=== PATIENT | male | born 1965 | race African-American/Black ===

== ENCOUNTER 2021-04-22 20:35 | Inpatient (IN) | payer OTHER ==
[2021-04-22 21:04] VITALS: BMI 216.1
[2021-04-23] MEDS ORDERED: IBUPROFEN 400 MG TABLET (FP) PO ONE (02:22)
[2021-04-23] MEDS ORDERED: MAGNESIUM CITRATE 300 ML BOTTLE PO PRN ×2 (03:58→04:04)
[2021-04-23] MEDS ORDERED: MAG HYDROX/AL HYDROX/SIMETH 30 ML UNIT-DOSE CUP PO PRN ×2 (03:58→04:04)
[2021-04-23] MEDS ORDERED: MAGNESIUM HYDROX 2400MG/30ML ORAL SUSPENSION 30 ML CUP PO PRN ×2 (03:58→04:04)
[2021-04-23] MEDS ORDERED: BISMUTH SUBSALICYLATE 524 MG/30 ML PO PRN ×2 (03:58→04:04)
[2021-04-23] MEDS ORDERED: MENTHOL/PHENOL 1 EACH UD MM PRN ×2 (03:58→04:04)
[2021-04-23] MEDS ORDERED: ONDANSETRON *ODT* 4 MG TABLET SL PRN ×2 (03:58→04:04)
[2021-04-23] MEDS ORDERED: ACETAMINOPHEN 325 MG TABLET (FP) PO PRN ×4 (03:58→04:04)
[2021-04-23] MEDS ORDERED: diazePAM 5 MG TABLET PO PRN (04:04)
[2021-04-23] MEDS ORDERED: METHOCARBAMOL 500 MG TABLET PO PRN (04:04)
[2021-04-23] MEDS ORDERED: IBUPROFEN 400 MG TABLET (FP) PO PRN (04:04)
[2021-04-23] MEDS ORDERED: diazePAM 5 MG TABLET ONE (05:00)
[2021-04-23] MEDS: diazePAM 5 MG TABLET PO SCH ×4 (05:05→22:54)
[2021-04-23] MEDS ORDERED: PRENATAL VITAMINS W/ FOLIC ACID TABLET (FP) PO SCH (10:00)
[2021-04-23] MEDS: IBUPROFEN 400 MG TABLET (FP) PO PRN (11:54)
[2021-04-23] MEDS: PRENATAL VITAMINS W/ FOLIC ACID TABLET (FP) PO SCH (11:54)
[2021-04-23] MEDS ORDERED: THIAMINE HCL 100 MG TABLET (FP) PO SCH (22:00)
[2021-04-23] MEDS ORDERED: MELATONIN 5 MG TABLETS PO SCH (22:00)
[2021-04-23] MEDS: THIAMINE HCL 100 MG TABLET (FP) PO SCH (23:00)
[2021-04-23] MEDS: MELATONIN 5 MG TABLETS PO SCH (23:00)
[2021-04-24] MEDS: diazePAM 5 MG TABLET PO SCH ×3 (06:22→22:59)
[2021-04-24] MEDS: METHOCARBAMOL 500 MG TABLET PO PRN (10:52)
[2021-04-24] MEDS: IBUPROFEN 400 MG TABLET (FP) PO PRN (10:52)
[2021-04-24] MEDS: PRENATAL VITAMINS W/ FOLIC ACID TABLET (FP) PO SCH (10:52)
[2021-04-24 13:30] LABS: HEMATOCRIT 41.9 % (35.4-49); HEMOGLOBIN 13.6 GM/dL (11.7-16.9); MCHC 32.5 g/dl (32.0-35.9); MEAN CELL VOLUME 86.1 fl (80-96); MEAN PLT VOLUME 7.5 fl (7.5-11.1); PLATELET COUNT 254 10^3/uL (134-434); RBC 4.87 M/mm3 (4.00-5.60); RDW 14.5 % (11.9-15.9); WHITE BLOOD COUNT 5.2 K/mm3 (4.0-10.0)
[2021-04-24 13:33] LABS: ALBUMIN 3.3 g/dl (3.4-5.0); CALCIUM 8.4 mg/dL (8.5-10.1)
[2021-04-24 13:35] LABS: BLOOD UREA NITROGEN 10.6 mg/dL (7-18)
[2021-04-24 13:39] LABS: BILIRUBIN,TOTAL 0.5 mg/dL (0.2-1); CREATININE 1.2 mg/dL (0.55-1.3); TOT PROT 6.3 g/dl (6.4-8.2)
[2021-04-24] MEDS: MELATONIN 5 MG TABLETS PO SCH (22:59)
[2021-04-24] MEDS: THIAMINE HCL 100 MG TABLET (FP) PO SCH (22:59)
[2021-04-25] MEDS: diazePAM 5 MG TABLET PO SCH ×3 (05:15→18:30)
[2021-04-25] MEDS: PRENATAL VITAMINS W/ FOLIC ACID TABLET (FP) PO SCH (10:26)
[2021-04-25] MEDS: METHOCARBAMOL 500 MG TABLET PO PRN (10:27)
[2021-04-25] MEDS: IBUPROFEN 400 MG TABLET (FP) PO PRN (10:27)
[2021-04-25] MEDS: THIAMINE HCL 100 MG TABLET (FP) PO SCH (22:05)
[2021-04-25] MEDS: MELATONIN 5 MG TABLETS PO SCH (22:06)
[2021-04-26] MEDS ORDERED: diazePAM 5 MG TABLET PO ONE (06:00)
[2021-04-26 06:20] VITALS: BP 112/61; PULSE 72; TEMP 97.2
== END 2021-04-26 09:03 | disposition home or self-care (01) | DRG 774 ==
LOC: YASAS 20:35 → Y6N 04-23 02:17
PROVIDERS: ADMIT Allergy & Immunology; ATTEND Allergy & Immunology
PROC: HZ2ZZZZ Detoxification Services for Substance Abuse Treatment (ICD-10-PCS; principal; 2021-04-23)
DX: F10.230 Alcohol dependence with withdrawal, uncomplicated (principal); F14.20 Cocaine dependence, uncomplicated; F17.210 Nicotine dependence, cigarettes, uncomplicated; F19.24 Other psychoactive substance dependence with psychoactive substance-induced mood disorder; F41.9 Anxiety disorder, unspecified; F32.A Depression, unspecified; F43.10 Post-traumatic stress disorder, unspecified; F90.9 Attention-deficit hyperactivity disorder, unspecified type; E78.5 Hyperlipidemia, unspecified; R73.03 Prediabetes; Z86.59 Personal history of other mental and behavioral disorders; Z99.89 Dependence on other enabling machines and devices; Z56.0 Unemployment, unspecified; Z59.01 Sheltered homelessness
CPT/HCPCS: 36415; 80053; 82962; 85027; 86780; 93005; 93010; C9803; U0003; U0005

== ENCOUNTER 2021-09-08 15:53 | Inpatient (IN) | payer OTHER ==
[2021-09-08 17:48] VITALS: BMI 24.3
[2021-09-08] MEDS ORDERED: MAG HYDROX/AL HYDROX/SIMETH 30 ML UNIT-DOSE CUP PO PRN (21:45)
[2021-09-08] MEDS ORDERED: ACETAMINOPHEN 325 MG TABLET (FP) PO PRN ×2 (21:45)
[2021-09-08] MEDS ORDERED: chlordiazePOXIDE HCL 25 MG CAPSULE PO PRN (21:45)
[2021-09-08] MEDS ORDERED: DICYCLOMINE HCL 10 MG CAPSULE PO PRN (21:45)
[2021-09-08] MEDS ORDERED: NICOTINE POLACRILEX 2 MG GUM BUC PRN (21:45)
[2021-09-08] MEDS ORDERED: IBUPROFEN 400 MG TABLET (FP) PO PRN (21:45)
[2021-09-08] MEDS ORDERED: ONDANSETRON *ODT* 4 MG TABLET SL PRN (21:45)
[2021-09-08] MEDS ORDERED: P-EPHED 60MG/TRIPROLIDI 2.5MG TABLET PO PRN (21:45)
[2021-09-08] MEDS ORDERED: MAGNESIUM HYDROX 2400MG/30ML ORAL SUSPENSION 30 ML CUP PO PRN (21:45)
[2021-09-08] MEDS ORDERED: METHOCARBAMOL 500 MG TABLET PO PRN (21:45)
[2021-09-08] MEDS ORDERED: MAGNESIUM CITRATE 300 ML BOTTLE PO PRN (21:45)
[2021-09-08] MEDS ORDERED: BENZOCAINE/MENTHOL (CHLORASEPTIC ) LOZENGE MM PRN (21:45)
[2021-09-08] MEDS ORDERED: guaiFENesin 200 MG/10 ML 10 ML UNIT-DOSE CUPS PO PRN (21:45)
[2021-09-08] MEDS ORDERED: BISMUTH SUBSALICYLATE 524 MG/30 ML PO PRN (21:45)
[2021-09-08] MEDS ORDERED: LOPERAMIDE HCL 2 MG CAPSULE PO PRN (21:45)
[2021-09-08] MEDS ORDERED: chlordiazePOXIDE HCL 25 MG CAPSULE ONE (23:42)
[2021-09-08] MEDS: THIAMINE HCL 100 MG TABLET (FP) PO SCH (23:49)
[2021-09-08] MEDS: chlordiazePOXIDE HCL 25 MG CAPSULE PO SCH (23:49)
[2021-09-08] MEDS: MELATONIN 5 MG TABLETS PO SCH (23:49)
[2021-09-09] MEDS: chlordiazePOXIDE HCL 25 MG CAPSULE PO SCH ×4 (06:00→22:37)
[2021-09-09] MEDS ORDERED: chlordiazePOXIDE HCL 25 MG CAPSULE ONE (08:27)
[2021-09-09] MEDS: FLUoxetine HCL 10 MG TABLET PO SCH (12:14)
[2021-09-09] MEDS: NICOTINE 14 MG/24 HOURS TOPICAL PATCH TD SCH (12:14)
[2021-09-09] MEDS: PRENATAL VITAMINS W/ FOLIC ACID TABLET (FP) PO SCH (12:14)
[2021-09-09 13:22] LABS: BLOOD UREA NITROGEN 9.7 mg/dL (7-18)
[2021-09-09 13:24] LABS: CALCIUM 8.4 mg/dL (8.5-10.1)
[2021-09-09 13:26] LABS: CREATININE 1.1 mg/dL (0.55-1.3)
[2021-09-09 13:30] LABS: BILIRUBIN,TOTAL 0.2 mg/dL (0.2-1)
[2021-09-09 13:35] LABS: HEMATOCRIT 39.8 % (35.4-49); HEMOGLOBIN 12.9 GM/dL (11.7-16.9); MCH 27.6 pg (25.7-33.7); MCHC 32.4 g/dl (32.0-35.9); MEAN PLT VOLUME 7.4 fl (7.5-11.1); PLATELET COUNT 323 10^3/uL (134-434); RBC 4.69 M/mm3 (4.00-5.60); RDW 14.6 % (11.9-15.9)
[2021-09-09] MEDS: THIAMINE HCL 100 MG TABLET (FP) PO SCH (22:37)
[2021-09-09] MEDS: MELATONIN 5 MG TABLETS PO SCH (22:37)
[2021-09-09] MEDS: QUEtiapine FUMARATE 50 MG TABLET PO SCH (22:37)
[2021-09-10] MEDS ORDERED: chlordiazePOXIDE HCL 25 MG CAPSULE PO SCH (05:00)
[2021-09-10] MEDS: chlordiazePOXIDE HCL 10 MG CAPSULE PO SCH ×4 (06:13→23:50)
[2021-09-10] MEDS: PRENATAL VITAMINS W/ FOLIC ACID TABLET (FP) PO SCH (10:48)
[2021-09-10] MEDS: FLUoxetine HCL 10 MG TABLET PO SCH (10:49)
[2021-09-10] MEDS: NICOTINE 14 MG/24 HOURS TOPICAL PATCH TD SCH (10:51)
[2021-09-10] MEDS: QUEtiapine FUMARATE 50 MG TABLET PO SCH (22:19)
[2021-09-10] MEDS: MELATONIN 5 MG TABLETS PO SCH (22:19)
[2021-09-10] MEDS: THIAMINE HCL 100 MG TABLET (FP) PO SCH (22:19)
[2021-09-11] MEDS ORDERED: chlordiazePOXIDE HCL 10 MG CAPSULE PO PRN
[2021-09-11] MEDS: chlordiazePOXIDE HCL 10 MG CAPSULE PO SCH ×2 (06:57→17:51)
[2021-09-11] MEDS: NICOTINE 14 MG/24 HOURS TOPICAL PATCH TD SCH (10:10)
[2021-09-11] MEDS: FLUoxetine HCL 10 MG TABLET PO SCH (10:11)
[2021-09-11] MEDS: PRENATAL VITAMINS W/ FOLIC ACID TABLET (FP) PO SCH (10:11)
[2021-09-11] MEDS: MELATONIN 5 MG TABLETS PO SCH (22:10)
[2021-09-11] MEDS: THIAMINE HCL 100 MG TABLET (FP) PO SCH (22:10)
[2021-09-11] MEDS: QUEtiapine FUMARATE 50 MG TABLET PO SCH (22:10)
[2021-09-12] MEDS ORDERED: chlordiazePOXIDE HCL 10 MG CAPSULE PO ONE (05:00)
[2021-09-12] MEDS: FLUoxetine HCL 10 MG TABLET PO SCH (10:24)
[2021-09-12] MEDS: PRENATAL VITAMINS W/ FOLIC ACID TABLET (FP) PO SCH (10:25)
[2021-09-12] MEDS: NICOTINE 14 MG/24 HOURS TOPICAL PATCH TD SCH (10:25)
[2021-09-12 12:36] VITALS: BP 120/73; PULSE 79; TEMP 97.6
== END 2021-09-12 13:53 | disposition other institution (70) | DRG 774 ==
LOC: YASAS 15:53 → Y3N 09-09 11:14
PROVIDERS: ADMIT Allergy & Immunology; ATTEND Allergy & Immunology
PROC: HZ2ZZZZ Detoxification Services for Substance Abuse Treatment (ICD-10-PCS; principal; 2021-09-09)
DX: F10.230 Alcohol dependence with withdrawal, uncomplicated (principal); F14.20 Cocaine dependence, uncomplicated; F17.210 Nicotine dependence, cigarettes, uncomplicated; F32.A Depression, unspecified; E78.5 Hyperlipidemia, unspecified; I10 Essential (primary) hypertension; Z86.39 Personal history of other endocrine, nutritional and metabolic disease; Z86.59 Personal history of other mental and behavioral disorders; Z99.89 Dependence on other enabling machines and devices; Z56.0 Unemployment, unspecified; Z59.00 Homelessness unspecified; Z91.14 Patient's other noncompliance with medication regimen
CPT/HCPCS: 36415; 80053; 83036; 85027; 86780; C9803-CS; U0003; U0005

== ENCOUNTER 2021-09-12 13:52 | Inpatient (IN) | payer OTHER ==
[2021-09-12] MEDS ORDERED: LOPERAMIDE HCL 2 MG CAPSULE PO PRN (15:03)
[2021-09-12] MEDS ORDERED: MAGNESIUM HYDROX 2400MG/30ML ORAL SUSPENSION 30 ML CUP PO PRN (15:03)
[2021-09-12] MEDS ORDERED: BENZOCAINE/MENTHOL (CHLORASEPTIC ) LOZENGE MM PRN (15:03)
[2021-09-12] MEDS ORDERED: MAG HYDROX/AL HYDROX/SIMETH 30 ML UNIT-DOSE CUP PO PRN (15:03)
[2021-09-12] MEDS ORDERED: P-EPHED 60MG/TRIPROLIDI 2.5MG TABLET PO PRN (15:03)
[2021-09-12] MEDS ORDERED: MELATONIN 5 MG TABLETS PO PRN (15:03)
[2021-09-12] MEDS ORDERED: IBUPROFEN 400 MG TABLET (FP) PO PRN (15:03)
[2021-09-12] MEDS ORDERED: MAGNESIUM CITRATE 300 ML BOTTLE PO PRN (15:03)
[2021-09-12] MEDS ORDERED: guaiFENesin 200 MG/10 ML 10 ML UNIT-DOSE CUPS PO PRN (15:03)
[2021-09-12] MEDS: THIAMINE HCL 100 MG TABLET (FP) PO SCH (21:08)
[2021-09-12] MEDS ORDERED: QUEtiapine FUMARATE 50 MG TABLET PO ONE (22:00)
[2021-09-13] MEDS: FLUoxetine HCL 10 MG CAPSULE PO SCH (11:24)
[2021-09-13] MEDS: ATOMOXETINE HCL 25 MG CAPSULE PO SCH (11:25)
[2021-09-13] MEDS: PRENATAL VITAMINS W/ FOLIC ACID TABLET (FP) PO SCH (11:27)
[2021-09-13] MEDS: THIAMINE HCL 100 MG TABLET (FP) PO SCH (21:21)
[2021-09-13] MEDS: QUEtiapine FUMARATE 50 MG TABLET PO SCH (21:21)
[2021-09-14] MEDS: FLUoxetine HCL 10 MG CAPSULE PO SCH (09:51)
[2021-09-14] MEDS: PRENATAL VITAMINS W/ FOLIC ACID TABLET (FP) PO SCH (09:51)
[2021-09-14] MEDS: ATOMOXETINE HCL 25 MG CAPSULE PO SCH (09:52)
[2021-09-14] MEDS: THIAMINE HCL 100 MG TABLET (FP) PO SCH (21:12)
[2021-09-14] MEDS: QUEtiapine FUMARATE 50 MG TABLET PO SCH (21:12)
[2021-09-15] MEDS: PRENATAL VITAMINS W/ FOLIC ACID TABLET (FP) PO SCH (09:40)
[2021-09-15] MEDS: FLUoxetine HCL 10 MG CAPSULE PO SCH (09:40)
[2021-09-15] MEDS: ATOMOXETINE HCL 25 MG CAPSULE PO SCH (09:41)
[2021-09-15 14:08] LABS: SARS-CoV-2 NAA Not Detected (Not Detected)
[2021-09-15] MEDS: THIAMINE HCL 100 MG TABLET (FP) PO SCH (21:27)
[2021-09-15] MEDS: QUEtiapine FUMARATE 50 MG TABLET PO SCH (21:27)
[2021-09-16] MEDS: PRENATAL VITAMINS W/ FOLIC ACID TABLET (FP) PO SCH (10:16)
[2021-09-16] MEDS: FLUoxetine HCL 10 MG CAPSULE PO SCH (10:16)
[2021-09-16] MEDS: ATOMOXETINE HCL 25 MG CAPSULE PO SCH (10:17)
[2021-09-16] MEDS: QUEtiapine FUMARATE 50 MG TABLET PO SCH (21:11)
[2021-09-16] MEDS: THIAMINE HCL 100 MG TABLET (FP) PO SCH (21:11)
[2021-09-17] MEDS: FLUoxetine HCL 10 MG CAPSULE PO SCH (10:20)
[2021-09-17] MEDS: ATOMOXETINE HCL 25 MG CAPSULE PO SCH (10:20)
[2021-09-17] MEDS: PRENATAL VITAMINS W/ FOLIC ACID TABLET (FP) PO SCH (10:20)
[2021-09-17] MEDS: THIAMINE HCL 100 MG TABLET (FP) PO SCH (21:31)
[2021-09-17] MEDS: QUEtiapine FUMARATE 50 MG TABLET PO SCH (21:31)
[2021-09-18] MEDS: FLUoxetine HCL 10 MG CAPSULE PO SCH (10:05)
[2021-09-18] MEDS: ATOMOXETINE HCL 25 MG CAPSULE PO SCH (10:05)
[2021-09-18] MEDS: PRENATAL VITAMINS W/ FOLIC ACID TABLET (FP) PO SCH (10:06)
[2021-09-18] MEDS: THIAMINE HCL 100 MG TABLET (FP) PO SCH (21:44)
[2021-09-18] MEDS: QUEtiapine FUMARATE 50 MG TABLET PO SCH (21:44)
[2021-09-19] MEDS: PRENATAL VITAMINS W/ FOLIC ACID TABLET (FP) PO SCH (10:53)
[2021-09-19] MEDS: FLUoxetine HCL 10 MG CAPSULE PO SCH (10:53)
[2021-09-19] MEDS: ATOMOXETINE HCL 25 MG CAPSULE PO SCH (10:53)
[2021-09-19] MEDS: ACETAMINOPHEN 325 MG TABLET (FP) PO PRN (10:53)
[2021-09-19] MEDS: THIAMINE HCL 100 MG TABLET (FP) PO SCH (21:16)
[2021-09-19] MEDS: QUEtiapine FUMARATE 50 MG TABLET PO SCH (21:16)
[2021-09-20] MEDS: PRENATAL VITAMINS W/ FOLIC ACID TABLET (FP) PO SCH (09:54)
[2021-09-20] MEDS: ATOMOXETINE HCL 25 MG CAPSULE PO SCH (09:54)
[2021-09-20] MEDS: FLUoxetine HCL 10 MG CAPSULE PO SCH (09:54)
[2021-09-20] MEDS: QUEtiapine FUMARATE 50 MG TABLET PO SCH (21:32)
[2021-09-20] MEDS: THIAMINE HCL 100 MG TABLET (FP) PO SCH (21:32)
[2021-09-21] MEDS: ATOMOXETINE HCL 25 MG CAPSULE PO SCH (09:43)
[2021-09-21] MEDS: FLUoxetine HCL 10 MG CAPSULE PO SCH (09:43)
[2021-09-21] MEDS: PRENATAL VITAMINS W/ FOLIC ACID TABLET (FP) PO SCH (09:43)
[2021-09-21] MEDS: THIAMINE HCL 100 MG TABLET (FP) PO SCH (21:15)
[2021-09-21] MEDS: QUEtiapine FUMARATE 50 MG TABLET PO SCH (21:15)
[2021-09-22] MEDS: FLUoxetine HCL 10 MG CAPSULE PO SCH (09:48)
[2021-09-22] MEDS: PRENATAL VITAMINS W/ FOLIC ACID TABLET (FP) PO SCH (09:48)
[2021-09-22] MEDS: ATOMOXETINE HCL 25 MG CAPSULE PO SCH (09:48)
[2021-09-22] MEDS: QUEtiapine FUMARATE 50 MG TABLET PO SCH (21:19)
[2021-09-22] MEDS: THIAMINE HCL 100 MG TABLET (FP) PO SCH (21:19)
[2021-09-23] MEDS: PRENATAL VITAMINS W/ FOLIC ACID TABLET (FP) PO SCH (10:01)
[2021-09-23] MEDS: FLUoxetine HCL 10 MG CAPSULE PO SCH (10:01)
[2021-09-23] MEDS: ATOMOXETINE HCL 25 MG CAPSULE PO SCH (10:02)
[2021-09-23] MEDS: QUEtiapine FUMARATE 50 MG TABLET PO SCH (21:32)
[2021-09-23] MEDS: THIAMINE HCL 100 MG TABLET (FP) PO SCH (21:32)
[2021-09-24] MEDS: ATOMOXETINE HCL 25 MG CAPSULE PO SCH (10:37)
[2021-09-24] MEDS: FLUoxetine HCL 10 MG CAPSULE PO SCH (10:37)
[2021-09-24] MEDS: PRENATAL VITAMINS W/ FOLIC ACID TABLET (FP) PO SCH (10:38)
[2021-09-24] MEDS: THIAMINE HCL 100 MG TABLET (FP) PO SCH (21:08)
[2021-09-24] MEDS: QUEtiapine FUMARATE 50 MG TABLET PO SCH (21:08)
[2021-09-25] MEDS: ATOMOXETINE HCL 25 MG CAPSULE PO SCH (09:54)
[2021-09-25] MEDS: PRENATAL VITAMINS W/ FOLIC ACID TABLET (FP) PO SCH (09:54)
[2021-09-25] MEDS: FLUoxetine HCL 10 MG CAPSULE PO SCH (09:54)
[2021-09-25] MEDS: QUEtiapine FUMARATE 50 MG TABLET PO SCH (21:28)
[2021-09-25] MEDS: THIAMINE HCL 100 MG TABLET (FP) PO SCH (21:28)
[2021-09-26] MEDS: PRENATAL VITAMINS W/ FOLIC ACID TABLET (FP) PO SCH (10:15)
[2021-09-26] MEDS: ATOMOXETINE HCL 25 MG CAPSULE PO SCH (10:15)
[2021-09-26] MEDS: FLUoxetine HCL 10 MG CAPSULE PO SCH (10:15)
[2021-09-26] MEDS: ACETAMINOPHEN 325 MG TABLET (FP) PO PRN (13:33)
[2021-09-26] MEDS: QUEtiapine FUMARATE 50 MG TABLET PO SCH (21:03)
[2021-09-26] MEDS: THIAMINE HCL 100 MG TABLET (FP) PO SCH (21:03)
[2021-09-27] MEDS: PRENATAL VITAMINS W/ FOLIC ACID TABLET (FP) PO SCH (10:10)
[2021-09-27] MEDS: ATOMOXETINE HCL 25 MG CAPSULE PO SCH (10:10)
[2021-09-27] MEDS: FLUoxetine HCL 10 MG CAPSULE PO SCH (10:10)
[2021-09-27] MEDS: QUEtiapine FUMARATE 50 MG TABLET PO SCH (21:24)
[2021-09-27] MEDS: THIAMINE HCL 100 MG TABLET (FP) PO SCH (21:24)
[2021-09-28] MEDS: FLUoxetine HCL 10 MG CAPSULE PO SCH (10:24)
[2021-09-28] MEDS: PRENATAL VITAMINS W/ FOLIC ACID TABLET (FP) PO SCH (10:24)
[2021-09-28] MEDS: ATOMOXETINE HCL 25 MG CAPSULE PO SCH (10:24)
[2021-09-28] MEDS: THIAMINE HCL 100 MG TABLET (FP) PO SCH (21:09)
[2021-09-28] MEDS: QUEtiapine FUMARATE 50 MG TABLET PO SCH (21:09)
[2021-09-29] MEDS: PRENATAL VITAMINS W/ FOLIC ACID TABLET (FP) PO SCH (09:42)
[2021-09-29] MEDS: FLUoxetine HCL 10 MG CAPSULE PO SCH (09:42)
[2021-09-29] MEDS: ATOMOXETINE HCL 25 MG CAPSULE PO SCH (09:42)
[2021-09-29] MEDS: ACETAMINOPHEN 325 MG TABLET (FP) PO PRN (12:50)
[2021-09-29] MEDS: QUEtiapine FUMARATE 50 MG TABLET PO SCH (21:21)
[2021-09-29] MEDS: THIAMINE HCL 100 MG TABLET (FP) PO SCH (21:21)
[2021-09-30] MEDS: PRENATAL VITAMINS W/ FOLIC ACID TABLET (FP) PO SCH (09:52)
[2021-09-30] MEDS: FLUoxetine HCL 10 MG CAPSULE PO SCH (09:52)
[2021-09-30] MEDS: ATOMOXETINE HCL 25 MG CAPSULE PO SCH (09:52)
[2021-09-30] MEDS: QUEtiapine FUMARATE 50 MG TABLET PO SCH (21:06)
[2021-09-30] MEDS: THIAMINE HCL 100 MG TABLET (FP) PO SCH (21:06)
[2021-10-01] MEDS: PRENATAL VITAMINS W/ FOLIC ACID TABLET (FP) PO SCH (10:05)
[2021-10-01] MEDS: ATOMOXETINE HCL 25 MG CAPSULE PO SCH (10:05)
[2021-10-01] MEDS: FLUoxetine HCL 10 MG CAPSULE PO SCH (10:05)
[2021-10-01] MEDS: THIAMINE HCL 100 MG TABLET (FP) PO SCH (21:22)
[2021-10-01] MEDS: QUEtiapine FUMARATE 50 MG TABLET PO SCH (21:22)
[2021-10-02] MEDS: PRENATAL VITAMINS W/ FOLIC ACID TABLET (FP) PO SCH (09:37)
[2021-10-02] MEDS: FLUoxetine HCL 10 MG CAPSULE PO SCH (09:37)
[2021-10-02] MEDS: ATOMOXETINE HCL 25 MG CAPSULE PO SCH (09:38)
[2021-10-02] MEDS: QUEtiapine FUMARATE 50 MG TABLET PO SCH (21:05)
[2021-10-02] MEDS: THIAMINE HCL 100 MG TABLET (FP) PO SCH (21:06)
[2021-10-03 06:57] VITALS: BP 121/76; PULSE 74; TEMP 96.7
[2021-10-03] MEDS: FLUoxetine HCL 10 MG CAPSULE PO SCH (09:43)
[2021-10-03] MEDS: PRENATAL VITAMINS W/ FOLIC ACID TABLET (FP) PO SCH (09:43)
[2021-10-03] MEDS: ATOMOXETINE HCL 25 MG CAPSULE PO SCH (09:44)
== END 2021-10-03 09:45 | disposition home or self-care (01) | DRG 772 ==
LOC: YASAS 13:52 → Y3W 13:53
PROVIDERS: ADMIT Allergy & Immunology; ATTEND Allergy & Immunology
PROC: HZ42ZZZ Group Counseling for Substance Abuse Treatment, Cognitive-Behavioral (ICD-10-PCS; principal; 2021-09-12)
DX: F10.20 Alcohol dependence, uncomplicated (principal); F14.20 Cocaine dependence, uncomplicated; F17.210 Nicotine dependence, cigarettes, uncomplicated; F32.A Depression, unspecified; I10 Essential (primary) hypertension; R73.03 Prediabetes; Z86.59 Personal history of other mental and behavioral disorders; Z91.14 Patient's other noncompliance with medication regimen; Z56.0 Unemployment, unspecified; Z59.00 Homelessness unspecified
CPT/HCPCS: 82962; C9803-CS; U0003; U0005

== ENCOUNTER 2022-01-25 16:22 | Inpatient (IN) | payer OTHER ==
[2022-01-25 18:26] VITALS: BMI 25.1
[2022-01-25] MEDS ORDERED: METHOCARBAMOL 500 MG TABLET PO PRN (20:14)
[2022-01-25] MEDS ORDERED: NICOTINE POLACRILEX 2 MG GUM BUC PRN (20:14)
[2022-01-25] MEDS ORDERED: LOPERAMIDE HCL 2 MG CAPSULE PO PRN (20:14)
[2022-01-25] MEDS ORDERED: ACETAMINOPHEN 325 MG TABLET (FP) PO PRN ×2 (20:14)
[2022-01-25] MEDS ORDERED: P-EPHED 60MG/TRIPROLIDI 2.5MG TABLET PO PRN (20:14)
[2022-01-25] MEDS ORDERED: MAGNESIUM HYDROX 2400MG/30ML ORAL SUSPENSION 30 ML CUP PO PRN (20:14)
[2022-01-25] MEDS ORDERED: MAG HYDROX/AL HYDROX/SIMETH 30 ML UNIT-DOSE CUP PO PRN (20:14)
[2022-01-25] MEDS ORDERED: BENZOCAINE/MENTHOL (CHLORASEPTIC ) LOZENGE MM PRN (20:14)
[2022-01-25] MEDS ORDERED: IBUPROFEN 400 MG TABLET (FP) PO PRN (20:14)
[2022-01-25] MEDS ORDERED: BISMUTH SUBSALICYLATE 524 MG/30 ML PO PRN (20:14)
[2022-01-25] MEDS ORDERED: DICYCLOMINE HCL 10 MG CAPSULE PO PRN (20:14)
[2022-01-25] MEDS ORDERED: MAGNESIUM CITRATE 300 ML BOTTLE PO PRN (20:14)
[2022-01-25] MEDS ORDERED: ONDANSETRON *ODT* 4 MG TABLET SL PRN (20:14)
[2022-01-25] MEDS ORDERED: IBUPROFEN 600 MG TABLET (FP) PO PRN (20:14)
[2022-01-25] MEDS ORDERED: hydrOXYzine PAMOATE 25 MG CAPSULE (FP) PO PRN (20:14)
[2022-01-25] MEDS ORDERED: guaiFENesin 200 MG/10 ML 10 ML UNIT-DOSE CUPS PO PRN (20:14)
[2022-01-26] MEDS: MELATONIN 5 MG TABLETS PO SCH ×2 (03:09→23:05)
[2022-01-26] MEDS: THIAMINE HCL 100 MG TABLET (FP) PO SCH ×2 (03:09→23:04)
[2022-01-26 10:06] LABS: HEMATOCRIT 38.2 % (35.4-49); HEMOGLOBIN 12.9 GM/dL (11.7-16.9); MCH 28.7 pg (25.7-33.7); MCHC 33.7 g/dl (32.0-35.9); MEAN CELL VOLUME 85.2 fl (80-96); MEAN PLT VOLUME 7.3 fl (7.5-11.1); PLATELET COUNT 296 10^3/uL (134-434); RBC 4.49 M/mm3 (4.00-5.60); RDW 13.8 % (11.9-15.9)
[2022-01-26] MEDS: PRENATAL VITAMINS W/ FOLIC ACID TABLET (FP) PO SCH (10:37)
[2022-01-26] MEDS: NICOTINE 14 MG/24 HOURS TOPICAL PATCH TD SCH (10:38)
[2022-01-26 12:01] LABS: HIV INTERPRETATION NEGATIVE (NEGATIVE)
[2022-01-26 12:14] LABS: ALBUMIN 3.2 g/dl (3.4-5.0); CALCIUM 8.6 mg/dL (8.5-10.1)
[2022-01-26 12:17] LABS: CREATININE 1.2 mg/dL (0.55-1.3)
[2022-01-26 12:19] LABS: BILIRUBIN,TOTAL 0.7 mg/dL (0.2-1); TOT PROT 5.9 g/dl (6.4-8.2)
[2022-01-26] MEDS ORDERED: LORazepam 1 MG TABLET PO PRN (14:51)
[2022-01-26] MEDS: ACYCLOVIR 200 MG CAPSULE PO SCH ×2 (15:41→23:04)
[2022-01-26] MEDS: LORazepam 2 MG TABLET PO SCH ×2 (17:55→23:05)
[2022-01-26] MEDS: QUEtiapine FUMARATE 50 MG TABLET PO SCH (23:04)
[2022-01-27] MEDS: LORazepam 2 MG TABLET PO SCH ×4 (06:15→22:40)
[2022-01-27] MEDS: ACYCLOVIR 200 MG CAPSULE PO SCH ×2 (10:42→22:41)
[2022-01-27] MEDS: NICOTINE 14 MG/24 HOURS TOPICAL PATCH TD SCH (10:42)
[2022-01-27] MEDS: PRENATAL VITAMINS W/ FOLIC ACID TABLET (FP) PO SCH (10:42)
[2022-01-27] MEDS: FLUoxetine HCL 10 MG TABLET PO SCH (11:18)
[2022-01-27] MEDS: ATOMOXETINE HCL 25 MG CAPSULE PO SCH (11:18)
[2022-01-27] MEDS: QUEtiapine FUMARATE 50 MG TABLET PO SCH (22:41)
[2022-01-27] MEDS: THIAMINE HCL 100 MG TABLET (FP) PO SCH (22:41)
[2022-01-27] MEDS: MELATONIN 5 MG TABLETS PO SCH (22:41)
[2022-01-28] MEDS: LORazepam 1 MG TABLET PO SCH ×4 (05:51→22:46)
[2022-01-28] MEDS: NICOTINE 14 MG/24 HOURS TOPICAL PATCH TD SCH (10:33)
[2022-01-28] MEDS: PRENATAL VITAMINS W/ FOLIC ACID TABLET (FP) PO SCH (10:33)
[2022-01-28] MEDS: FLUoxetine HCL 10 MG TABLET PO SCH (10:34)
[2022-01-28] MEDS: ATOMOXETINE HCL 25 MG CAPSULE PO SCH (10:34)
[2022-01-28] MEDS: ACYCLOVIR 200 MG CAPSULE PO SCH ×2 (10:34→22:46)
[2022-01-28] MEDS: QUEtiapine FUMARATE 50 MG TABLET PO SCH (22:46)
[2022-01-28] MEDS: THIAMINE HCL 100 MG TABLET (FP) PO SCH (22:46)
[2022-01-28] MEDS: MELATONIN 5 MG TABLETS PO SCH (22:46)
[2022-01-29] MEDS ORDERED: LORazepam 0.5 MG TABLET PO PRN
[2022-01-29] MEDS: LORazepam 0.5 MG TABLET PO SCH ×4 (05:36→22:44)
[2022-01-29] MEDS: PRENATAL VITAMINS W/ FOLIC ACID TABLET (FP) PO SCH (10:28)
[2022-01-29] MEDS: ACYCLOVIR 200 MG CAPSULE PO SCH ×2 (10:28→22:44)
[2022-01-29] MEDS: FLUoxetine HCL 10 MG TABLET PO SCH (10:29)
[2022-01-29] MEDS: ATOMOXETINE HCL 25 MG CAPSULE PO SCH (10:29)
[2022-01-29] MEDS: NICOTINE 14 MG/24 HOURS TOPICAL PATCH TD SCH (10:30)
[2022-01-29] MEDS: MELATONIN 5 MG TABLETS PO SCH (22:44)
[2022-01-29] MEDS: QUEtiapine FUMARATE 50 MG TABLET PO SCH (22:44)
[2022-01-29] MEDS: THIAMINE HCL 100 MG TABLET (FP) PO SCH (22:44)
[2022-01-30] MEDS ORDERED: LORazepam 0.5 MG TABLET PO ONE (05:00)
[2022-01-30] MEDS ORDERED: INSULIN SLIDING SCALE (NOVOLOG) 1 VIAL SQ ONE (06:47)
[2022-01-30] MEDS: PRENATAL VITAMINS W/ FOLIC ACID TABLET (FP) PO SCH (10:30)
[2022-01-30] MEDS: FLUoxetine HCL 10 MG TABLET PO SCH (10:31)
[2022-01-30] MEDS: NICOTINE 14 MG/24 HOURS TOPICAL PATCH TD SCH (10:31)
[2022-01-30] MEDS: ACYCLOVIR 200 MG CAPSULE PO SCH ×2 (10:32→22:38)
[2022-01-30] MEDS: ATOMOXETINE HCL 25 MG CAPSULE PO SCH (10:33)
[2022-01-30] MEDS: QUEtiapine FUMARATE 50 MG TABLET PO SCH (22:38)
[2022-01-30] MEDS: MELATONIN 5 MG TABLETS PO SCH (22:38)
[2022-01-30] MEDS: THIAMINE HCL 100 MG TABLET (FP) PO SCH (22:38)
[2022-01-31] MEDS: FLUoxetine HCL 10 MG TABLET PO SCH (11:10)
[2022-01-31] MEDS: NICOTINE 14 MG/24 HOURS TOPICAL PATCH TD SCH (11:10)
[2022-01-31] MEDS: PRENATAL VITAMINS W/ FOLIC ACID TABLET (FP) PO SCH (11:10)
[2022-01-31] MEDS: ATOMOXETINE HCL 25 MG CAPSULE PO SCH (11:11)
[2022-01-31] MEDS: ACYCLOVIR 200 MG CAPSULE PO SCH ×2 (11:11→21:37)
[2022-01-31] MEDS: THIAMINE HCL 100 MG TABLET (FP) PO SCH (21:37)
[2022-01-31] MEDS: QUEtiapine FUMARATE 50 MG TABLET PO SCH (21:37)
[2022-01-31] MEDS: MELATONIN 5 MG TABLETS PO SCH (21:37)
[2022-01-31 21:54] VITALS: RESP 18
[2022-02-01 09:56] VITALS: BP 116/62; PULSE 80; TEMP 97.6
[2022-02-01] MEDS: NICOTINE 14 MG/24 HOURS TOPICAL PATCH TD SCH (11:17)
[2022-02-01] MEDS: PRENATAL VITAMINS W/ FOLIC ACID TABLET (FP) PO SCH (11:18)
[2022-02-01] MEDS: FLUoxetine HCL 10 MG TABLET PO SCH (11:18)
[2022-02-01] MEDS: ATOMOXETINE HCL 25 MG CAPSULE PO SCH (11:18)
[2022-02-01] MEDS: ACYCLOVIR 200 MG CAPSULE PO SCH (11:18)
== END 2022-02-01 12:22 | disposition home or self-care (01) | DRG 774 ==
LOC: YASAS 16:22 → Y3N 01-26 02:27
PROVIDERS: ADMIT Surgery; ATTEND Surgery
PROC: HZ2ZZZZ Detoxification Services for Substance Abuse Treatment (ICD-10-PCS; principal; 2022-01-26)
DX: F10.230 Alcohol dependence with withdrawal, uncomplicated (principal); F14.20 Cocaine dependence, uncomplicated; F17.210 Nicotine dependence, cigarettes, uncomplicated; F19.24 Other psychoactive substance dependence with psychoactive substance-induced mood disorder; I10 Essential (primary) hypertension; E78.5 Hyperlipidemia, unspecified; U07.1 COVID-19; R79.89 Other specified abnormal findings of blood chemistry; R73.9 Hyperglycemia, unspecified; R73.03 Prediabetes; E46 Unspecified protein-calorie malnutrition; Z68.25 Body mass index [BMI] 25.0-25.9, adult; Z86.59 Personal history of other mental and behavioral disorders; Z91.14 Patient's other noncompliance with medication regimen; Z56.0 Unemployment, unspecified; Z59.00 Homelessness unspecified
CPT/HCPCS: 36415; 80053; 82962; 84132; 85027; 86780; 87389; 87811; C9803-CS; U0003; U0005

== ENCOUNTER 2022-02-23 15:20 | Inpatient (IN) | payer OTHER ==
[2022-02-23 18:20] VITALS: BMI 23.9
[2022-02-23] MEDS ORDERED: chlordiazePOXIDE HCL 25 MG CAPSULE PO PRN (18:58)
[2022-02-23] MEDS ORDERED: LOPERAMIDE HCL 2 MG CAPSULE PO PRN (18:58)
[2022-02-23] MEDS ORDERED: NICOTINE 10 MG CARTRIDGE (INHALER) IH PRN (18:58)
[2022-02-23] MEDS ORDERED: MAGNESIUM HYDROX 2400MG/30ML ORAL SUSPENSION 30 ML CUP PO PRN (18:58)
[2022-02-23] MEDS ORDERED: BISMUTH SUBSALICYLATE 524 MG/30 ML PO PRN (18:58)
[2022-02-23] MEDS ORDERED: NALOXONE HCL (KLOXXADO) 8 MG SPRAY NS PRN (18:58)
[2022-02-23] MEDS ORDERED: MAG HYDROX/AL HYDROX/SIMETH 30 ML UNIT-DOSE CUP PO PRN (18:58)
[2022-02-23] MEDS ORDERED: NICOTINE POLACRILEX 2 MG GUM BC PRN (18:58)
[2022-02-23] MEDS ORDERED: MAGNESIUM CITRATE 300 ML BOTTLE PO PRN (18:58)
[2022-02-23] MEDS ORDERED: ONDANSETRON *ODT* 4 MG TABLET SL PRN (18:58)
[2022-02-23] MEDS ORDERED: IBUPROFEN 400 MG TABLET (FP) PO PRN (18:58)
[2022-02-23] MEDS ORDERED: BENZOCAINE/MENTHOL (CHLORASEPTIC ) LOZENGE MM PRN (18:58)
[2022-02-23] MEDS ORDERED: IBUPROFEN 600 MG TABLET (FP) PO PRN (18:58)
[2022-02-23] MEDS ORDERED: DICYCLOMINE HCL 10 MG CAPSULE PO PRN (18:58)
[2022-02-23] MEDS ORDERED: ACETAMINOPHEN 325 MG TABLET (FP) PO PRN ×2 (18:58)
[2022-02-23] MEDS ORDERED: METHOCARBAMOL 500 MG TABLET PO PRN (18:58)
[2022-02-23] MEDS: PRENATAL VITAMINS W/ FOLIC ACID TABLET (FP) PO SCH (22:34)
[2022-02-23] MEDS: MELATONIN 5 MG TABLETS PO SCH (22:34)
[2022-02-23] MEDS: NICOTINE 7 MG/24 HOURS TOPICAL PATCH TD SCH (22:34)
[2022-02-23] MEDS: THIAMINE HCL 100 MG TABLET (FP) PO SCH (22:34)
[2022-02-23] MEDS: hydrOXYzine PAMOATE 25 MG CAPSULE (FP) PO SCH (22:34)
[2022-02-23] MEDS: chlordiazePOXIDE HCL 25 MG CAPSULE PO SCH (22:35)
[2022-02-24] MEDS: hydrOXYzine PAMOATE 25 MG CAPSULE (FP) PO SCH ×5 (06:03→23:03)
[2022-02-24] MEDS: chlordiazePOXIDE HCL 25 MG CAPSULE PO SCH ×4 (06:05→23:03)
[2022-02-24] MEDS: FLUoxetine HCL 10 MG TABLET PO SCH (11:36)
[2022-02-24] MEDS: NICOTINE 7 MG/24 HOURS TOPICAL PATCH TD SCH (11:36)
[2022-02-24] MEDS: PRENATAL VITAMINS W/ FOLIC ACID TABLET (FP) PO SCH (11:36)
[2022-02-24] MEDS: ATOMOXETINE HCL 25 MG CAPSULE PO SCH (11:36)
[2022-02-24] MEDS: QUEtiapine FUMARATE 50 MG TABLET PO SCH (23:03)
[2022-02-24] MEDS: THIAMINE HCL 100 MG TABLET (FP) PO SCH (23:03)
[2022-02-25] MEDS: chlordiazePOXIDE HCL 25 MG CAPSULE PO SCH ×4 (06:31→22:28)
[2022-02-25] MEDS: hydrOXYzine PAMOATE 25 MG CAPSULE (FP) PO SCH ×5 (06:32→22:29)
[2022-02-25] MEDS: FLUoxetine HCL 10 MG TABLET PO SCH (10:43)
[2022-02-25] MEDS: PRENATAL VITAMINS W/ FOLIC ACID TABLET (FP) PO SCH (10:43)
[2022-02-25] MEDS: ATOMOXETINE HCL 25 MG CAPSULE PO SCH (10:44)
[2022-02-25] MEDS: NICOTINE 7 MG/24 HOURS TOPICAL PATCH TD SCH (10:46)
[2022-02-25 21:09] VITALS: RESP 18
[2022-02-25] MEDS: MELATONIN 5 MG TABLETS PO SCH (22:29)
[2022-02-25] MEDS: THIAMINE HCL 100 MG TABLET (FP) PO SCH (22:29)
[2022-02-25] MEDS: QUEtiapine FUMARATE 50 MG TABLET PO SCH (22:29)
[2022-02-26] MEDS ORDERED: chlordiazePOXIDE HCL 10 MG CAPSULE PO PRN
[2022-02-26] MEDS: chlordiazePOXIDE HCL 10 MG CAPSULE PO SCH ×4 (05:35→23:10)
[2022-02-26] MEDS: hydrOXYzine PAMOATE 25 MG CAPSULE (FP) PO SCH ×5 (05:35→23:10)
[2022-02-26] MEDS: PRENATAL VITAMINS W/ FOLIC ACID TABLET (FP) PO SCH (10:25)
[2022-02-26] MEDS: FLUoxetine HCL 10 MG TABLET PO SCH (10:26)
[2022-02-26] MEDS: ATOMOXETINE HCL 25 MG CAPSULE PO SCH (10:26)
[2022-02-26 10:37] LABS: HEMATOCRIT 37.4 % (35.4-49); HEMOGLOBIN 12.3 GM/dL (11.7-16.9); MCHC 32.8 g/dl (32.0-35.9); MEAN CELL VOLUME 85.4 fl (80-96); MEAN PLT VOLUME 7.4 fl (7.5-11.1); PLATELET COUNT 298 10^3/uL (134-434); RBC 4.38 M/mm3 (4.00-5.60); RDW 14.8 % (11.9-15.9); WHITE BLOOD COUNT 3.5 K/mm3 (4.0-10.0)
[2022-02-26 10:39] LABS: BLOOD UREA NITROGEN 12.8 mg/dL (7-18)
[2022-02-26 10:40] LABS: ALBUMIN 2.8 g/dl (3.4-5.0); CALCIUM 8.5 mg/dL (8.5-10.1)
[2022-02-26 10:42] LABS: CREATININE 0.9 mg/dL (0.55-1.3)
[2022-02-26 10:43] LABS: BILIRUBIN,TOTAL 0.2 mg/dL (0.2-1)
[2022-02-26 10:44] LABS: TOT PROT 5.4 g/dl (6.4-8.2)
[2022-02-26] MEDS: NICOTINE 7 MG/24 HOURS TOPICAL PATCH TD SCH (11:28)
[2022-02-26] MEDS: THIAMINE HCL 100 MG TABLET (FP) PO SCH (23:10)
[2022-02-26] MEDS: QUEtiapine FUMARATE 50 MG TABLET PO SCH (23:10)
[2022-02-27] MEDS: hydrOXYzine PAMOATE 25 MG CAPSULE (FP) PO SCH ×5 (05:31→22:07)
[2022-02-27] MEDS: chlordiazePOXIDE HCL 10 MG CAPSULE PO SCH ×2 (05:32→18:25)
[2022-02-27] MEDS: PRENATAL VITAMINS W/ FOLIC ACID TABLET (FP) PO SCH (10:40)
[2022-02-27] MEDS: NICOTINE 7 MG/24 HOURS TOPICAL PATCH TD SCH (10:40)
[2022-02-27] MEDS: FLUoxetine HCL 10 MG TABLET PO SCH (10:40)
[2022-02-27] MEDS: ATOMOXETINE HCL 25 MG CAPSULE PO SCH (10:40)
[2022-02-27] MEDS: QUEtiapine FUMARATE 50 MG TABLET PO SCH (22:07)
[2022-02-27] MEDS: THIAMINE HCL 100 MG TABLET (FP) PO SCH (22:07)
[2022-02-28] MEDS ORDERED: chlordiazePOXIDE HCL 10 MG CAPSULE PO ONE (05:00)
[2022-02-28] MEDS: hydrOXYzine PAMOATE 25 MG CAPSULE (FP) PO SCH ×3 (06:16→13:20)
[2022-02-28 08:45] VITALS: PULSE 79
[2022-02-28] MEDS: NICOTINE 7 MG/24 HOURS TOPICAL PATCH TD SCH (09:37)
[2022-02-28] MEDS: PRENATAL VITAMINS W/ FOLIC ACID TABLET (FP) PO SCH (09:37)
[2022-02-28] MEDS: FLUoxetine HCL 10 MG TABLET PO SCH (09:37)
[2022-02-28] MEDS: ATOMOXETINE HCL 25 MG CAPSULE PO SCH (09:37)
[2022-02-28 12:48] VITALS: BP 131/84; TEMP 97.7
== END 2022-02-28 15:31 | disposition home or self-care (01) | DRG 774 ==
LOC: YASAS 15:20 → Y3N 19:00
PROVIDERS: ADMIT Allergy & Immunology; ATTEND Surgery
PROC: HZ2ZZZZ Detoxification Services for Substance Abuse Treatment (ICD-10-PCS; principal; 2022-02-23)
DX: F10.230 Alcohol dependence with withdrawal, uncomplicated (principal); F14.20 Cocaine dependence, uncomplicated; F12.20 Cannabis dependence, uncomplicated; F17.210 Nicotine dependence, cigarettes, uncomplicated; F19.24 Other psychoactive substance dependence with psychoactive substance-induced mood disorder; I10 Essential (primary) hypertension; R73.03 Prediabetes; Z86.59 Personal history of other mental and behavioral disorders; Z56.0 Unemployment, unspecified; Z59.00 Homelessness unspecified
CPT/HCPCS: 36415; 80053; 82962; 85027; 86780; C9803-CS; U0003; U0005

== ENCOUNTER 2022-03-19 12:16 | Inpatient (IN) | payer OTHER ==
[2022-03-19 12:50] VITALS: BMI 23.3
[2022-03-19] MEDS ORDERED: MAGNESIUM HYDROX 2400MG/30ML ORAL SUSPENSION 30 ML CUP PO PRN (18:58)
[2022-03-19] MEDS ORDERED: ACETAMINOPHEN 325 MG TABLET (FP) PO PRN (18:58)
[2022-03-19] MEDS ORDERED: P-EPHED 60MG/TRIPROLIDI 2.5MG TABLET PO PRN (18:58)
[2022-03-19] MEDS ORDERED: hydrOXYzine PAMOATE 25 MG CAPSULE (FP) PO PRN (18:58)
[2022-03-19] MEDS ORDERED: NICOTINE 10 MG CARTRIDGE (INHALER) IH PRN (18:58)
[2022-03-19] MEDS ORDERED: LOPERAMIDE HCL 2 MG CAPSULE PO PRN (18:58)
[2022-03-19] MEDS ORDERED: MAG HYDROX/AL HYDROX/SIMETH 30 ML UNIT-DOSE CUP PO PRN (18:58)
[2022-03-19] MEDS ORDERED: MAGNESIUM CITRATE 300 ML BOTTLE PO PRN (18:58)
[2022-03-19] MEDS ORDERED: guaiFENesin 200 MG/10 ML 10 ML UNIT-DOSE CUPS PO PRN (18:58)
[2022-03-19] MEDS ORDERED: IBUPROFEN 400 MG TABLET (FP) PO PRN (18:58)
[2022-03-19] MEDS: MELATONIN 5 MG TABLETS PO SCH (23:40)
[2022-03-19] MEDS: THIAMINE HCL 100 MG TABLET (FP) PO SCH (23:40)
[2022-03-20] MEDS: NICOTINE 7 MG/24 HOURS TOPICAL PATCH TD SCH (10:36)
[2022-03-20] MEDS: PRENATAL VITAMINS W/ FOLIC ACID TABLET (FP) PO SCH (10:36)
[2022-03-20 15:27] LABS: PH,URINE 5.5 (5.0-8.0); URINE APPEARANCE CLEAR; URINE BILIRUBIN NEGATIVE (NEGATIVE); URINE COLOR YELLOW; URINE GLUCOSE (UA) NEGATIVE (NEGATIVE); URINE KETONE TRACE (NEGATIVE); URINE LEUK ESTERASE NEGATIVE (NEGATIVE); URINE NITRITE NEGATIVE (NEGATIVE); URINE PROTEIN NEGATIVE (NEGATIVE); URINE UROBILINOGEN 0.2 mg/dL (0.2-1.0)
[2022-03-20 15:28] LABS: HEMATOCRIT 38.3 % (35.4-49); HEMOGLOBIN 12.3 GM/dL (11.7-16.9); MCH 27.8 pg (25.7-33.7); MCHC 32.2 g/dl (32.0-35.9); MEAN CELL VOLUME 86.3 fl (80-96); PLATELET COUNT 316 10^3/uL (134-434); RBC 4.43 M/mm3 (4.00-5.60); RDW 14.5 % (11.9-15.9); WHITE BLOOD COUNT 3.7 K/mm3 (4.0-10.0)
[2022-03-20 17:49] LABS: ALBUMIN 2.9 g/dl (3.4-5.0); CALCIUM 8.4 mg/dL (8.5-10.1)
[2022-03-20 17:53] LABS: CREATININE 1.1 mg/dL (0.55-1.3)
[2022-03-20 17:54] LABS: BILIRUBIN,TOTAL 0.4 mg/dL (0.2-1); TOT PROT 5.4 g/dl (6.4-8.2)
[2022-03-20] MEDS: MELATONIN 5 MG TABLETS PO SCH (22:03)
[2022-03-20] MEDS: THIAMINE HCL 100 MG TABLET (FP) PO SCH (22:03)
[2022-03-21] MEDS: PRENATAL VITAMINS W/ FOLIC ACID TABLET (FP) PO SCH (10:06)
[2022-03-21] MEDS: NICOTINE 7 MG/24 HOURS TOPICAL PATCH TD SCH (10:06)
[2022-03-21] MEDS: THIAMINE HCL 100 MG TABLET (FP) PO SCH (21:07)
[2022-03-21] MEDS: MELATONIN 5 MG TABLETS PO SCH (21:07)
[2022-03-22] MEDS: PRENATAL VITAMINS W/ FOLIC ACID TABLET (FP) PO SCH (09:58)
[2022-03-22] MEDS: NICOTINE 7 MG/24 HOURS TOPICAL PATCH TD SCH (09:58)
[2022-03-22] MEDS: THIAMINE HCL 100 MG TABLET (FP) PO SCH (21:24)
[2022-03-22] MEDS: MELATONIN 5 MG TABLETS PO SCH (21:24)
[2022-03-22] MEDS: QUEtiapine FUMARATE 50 MG TABLET PO SCH (21:24)
[2022-03-23] MEDS: PRENATAL VITAMINS W/ FOLIC ACID TABLET (FP) PO SCH (10:47)
[2022-03-23] MEDS: FLUoxetine HCL 10 MG TABLET PO SCH (10:47)
[2022-03-23] MEDS: ATOMOXETINE HCL 25 MG CAPSULE PO SCH (10:48)
[2022-03-23] MEDS: NICOTINE 7 MG/24 HOURS TOPICAL PATCH TD SCH (10:49)
[2022-03-23] MEDS: QUEtiapine FUMARATE 50 MG TABLET PO SCH (21:20)
[2022-03-23] MEDS: THIAMINE HCL 100 MG TABLET (FP) PO SCH (21:20)
[2022-03-23] MEDS: MELATONIN 5 MG TABLETS PO SCH (21:20)
[2022-03-24] MEDS: NICOTINE 7 MG/24 HOURS TOPICAL PATCH TD SCH (09:45)
[2022-03-24] MEDS: FLUoxetine HCL 10 MG TABLET PO SCH (09:46)
[2022-03-24] MEDS: ATOMOXETINE HCL 25 MG CAPSULE PO SCH (09:46)
[2022-03-24] MEDS: PRENATAL VITAMINS W/ FOLIC ACID TABLET (FP) PO SCH (09:47)
[2022-03-24] MEDS: MELATONIN 5 MG TABLETS PO SCH (21:53)
[2022-03-24] MEDS: THIAMINE HCL 100 MG TABLET (FP) PO SCH (21:54)
[2022-03-24] MEDS: QUEtiapine FUMARATE 50 MG TABLET PO SCH (21:54)
[2022-03-25] MEDS: NICOTINE 7 MG/24 HOURS TOPICAL PATCH TD SCH (10:25)
[2022-03-25] MEDS: PRENATAL VITAMINS W/ FOLIC ACID TABLET (FP) PO SCH (10:25)
[2022-03-25] MEDS: ATOMOXETINE HCL 25 MG CAPSULE PO SCH (10:26)
[2022-03-25] MEDS: FLUoxetine HCL 10 MG TABLET PO SCH (10:26)
[2022-03-25] MEDS: THIAMINE HCL 100 MG TABLET (FP) PO SCH (21:41)
[2022-03-25] MEDS: MELATONIN 5 MG TABLETS PO SCH (21:41)
[2022-03-25] MEDS: QUEtiapine FUMARATE 50 MG TABLET PO SCH (21:41)
[2022-03-26] MEDS: FLUoxetine HCL 10 MG TABLET PO SCH (10:53)
[2022-03-26] MEDS: PRENATAL VITAMINS W/ FOLIC ACID TABLET (FP) PO SCH (10:53)
[2022-03-26] MEDS: NICOTINE 7 MG/24 HOURS TOPICAL PATCH TD SCH (10:53)
[2022-03-26] MEDS: ATOMOXETINE HCL 25 MG CAPSULE PO SCH (10:54)
[2022-03-26] MEDS: MELATONIN 5 MG TABLETS PO SCH (21:33)
[2022-03-26] MEDS: THIAMINE HCL 100 MG TABLET (FP) PO SCH (21:33)
[2022-03-26] MEDS: QUEtiapine FUMARATE 50 MG TABLET PO SCH (21:33)
[2022-03-27 07:33] VITALS: RESP 18
[2022-03-27] MEDS: FLUoxetine HCL 10 MG TABLET PO SCH (10:18)
[2022-03-27] MEDS: PRENATAL VITAMINS W/ FOLIC ACID TABLET (FP) PO SCH (10:18)
[2022-03-27] MEDS: ATOMOXETINE HCL 25 MG CAPSULE PO SCH (10:18)
[2022-03-27] MEDS: NICOTINE 7 MG/24 HOURS TOPICAL PATCH TD SCH (10:19)
[2022-03-27] MEDS: MELATONIN 5 MG TABLETS PO SCH (21:27)
[2022-03-27] MEDS: THIAMINE HCL 100 MG TABLET (FP) PO SCH (21:27)
[2022-03-27] MEDS: QUEtiapine FUMARATE 50 MG TABLET PO SCH (21:27)
[2022-03-28 07:08] VITALS: PULSE 71
[2022-03-28] MEDS: PRENATAL VITAMINS W/ FOLIC ACID TABLET (FP) PO SCH (09:36)
[2022-03-28] MEDS: NICOTINE 7 MG/24 HOURS TOPICAL PATCH TD SCH (09:36)
[2022-03-28] MEDS: ATOMOXETINE HCL 25 MG CAPSULE PO SCH (09:36)
[2022-03-28] MEDS: FLUoxetine HCL 10 MG TABLET PO SCH (09:36)
[2022-03-28] MEDS: THIAMINE HCL 100 MG TABLET (FP) PO SCH (21:27)
[2022-03-28] MEDS: MELATONIN 5 MG TABLETS PO SCH (21:27)
[2022-03-28] MEDS: QUEtiapine FUMARATE 50 MG TABLET PO SCH (21:27)
[2022-03-29] MEDS: ATOMOXETINE HCL 25 MG CAPSULE PO SCH (10:27)
[2022-03-29] MEDS: PRENATAL VITAMINS W/ FOLIC ACID TABLET (FP) PO SCH (10:27)
[2022-03-29] MEDS: NICOTINE 7 MG/24 HOURS TOPICAL PATCH TD SCH (10:27)
[2022-03-29] MEDS: FLUoxetine HCL 10 MG TABLET PO SCH (10:28)
[2022-03-29] MEDS: THIAMINE HCL 100 MG TABLET (FP) PO SCH (21:27)
[2022-03-29] MEDS: MELATONIN 5 MG TABLETS PO SCH (21:27)
[2022-03-29] MEDS: QUEtiapine FUMARATE 50 MG TABLET PO SCH (21:28)
[2022-03-30 07:10] VITALS: BP 101/57; TEMP 97.8
[2022-03-30] MEDS: NICOTINE 7 MG/24 HOURS TOPICAL PATCH TD SCH (09:01)
[2022-03-30] MEDS: ATOMOXETINE HCL 25 MG CAPSULE PO SCH (09:02)
[2022-03-30] MEDS: FLUoxetine HCL 10 MG TABLET PO SCH (09:02)
[2022-03-30] MEDS: PRENATAL VITAMINS W/ FOLIC ACID TABLET (FP) PO SCH (09:02)
== END 2022-03-30 09:05 | disposition home or self-care (01) | DRG 772 ==
LOC: YASAS 12:16 → Y3W 22:34
PROVIDERS: ADMIT Allergy & Immunology; ATTEND Psychiatry & Neurology Pain Medicine
PROC: HZ42ZZZ Group Counseling for Substance Abuse Treatment, Cognitive-Behavioral (ICD-10-PCS; principal; 2022-03-19)
DX: F14.20 Cocaine dependence, uncomplicated (principal); F12.20 Cannabis dependence, uncomplicated; F17.210 Nicotine dependence, cigarettes, uncomplicated; F19.282 Other psychoactive substance dependence with psychoactive substance-induced sleep disorder; F19.24 Other psychoactive substance dependence with psychoactive substance-induced mood disorder; F41.9 Anxiety disorder, unspecified; F32.A Depression, unspecified; F43.10 Post-traumatic stress disorder, unspecified; F90.9 Attention-deficit hyperactivity disorder, unspecified type; E78.5 Hyperlipidemia, unspecified; I10 Essential (primary) hypertension; E11.9 Type 2 diabetes mellitus without complications; Z79.84 Long term (current) use of oral hypoglycemic drugs; M23.207 Derangement of unspecified meniscus due to old tear or injury, left knee; Z99.89 Dependence on other enabling machines and devices; Z59.00 Homelessness unspecified
CPT/HCPCS: 36415; 80053; 81003; 82962; 85027; 86780; 87811; C9803-CS; U0003; U0005

== ENCOUNTER 2023-05-24 12:53 | Inpatient (IN) | payer OTHER ==
[2023-05-24 13:18] VITALS: BMI 24.5
[2023-05-24] MEDS ORDERED: COLLOIDAL OATMEAL 1 BAR EACH TP PRN (17:19)
[2023-05-24] MEDS ORDERED: MAGNESIUM HYDROX 2400MG/30ML ORAL SUSPENSION 30 ML CUP PO PRN (17:19)
[2023-05-24] MEDS ORDERED: NALOXONE HCL (KLOXXADO) 8 MG SPRAY NS PRN (17:19)
[2023-05-24] MEDS ORDERED: NALOXONE HCL 0.4 MG/ML VIAL IM PRN (17:19)
[2023-05-24] MEDS ORDERED: POLYETHYLENE GLYCOL (HEALTHYLAX) 3350 17 GM PACKET PO PRN (17:19)
[2023-05-24] MEDS ORDERED: BENZOCAINE/MENTHOL (CHLORASEPTIC ) LOZENGE MM PRN (17:19)
[2023-05-24] MEDS ORDERED: IBUPROFEN 400 MG TABLET (FP) PO PRN (17:19)
[2023-05-24] MEDS ORDERED: LOPERAMIDE HCL 2 MG CAPSULE PO PRN (17:19)
[2023-05-24] MEDS ORDERED: BENZONATATE 200 MG CAPSULE PO PRN (17:19)
[2023-05-24] MEDS ORDERED: hydrOXYzine PAMOATE 25 MG CAPSULE (FP) PO PRN (17:19)
[2023-05-24] MEDS ORDERED: MAG HYDROX/AL HYDROX/SIMETH 30 ML UNIT-DOSE CUP PO PRN (17:19)
[2023-05-24] MEDS ORDERED: guaiFENesin 600 MG TABLET.ER (FP) PO PRN (17:19)
[2023-05-24] MEDS ORDERED: TUBERCULIN PPD 5 TU/0.1ML SYRINGE (IN PATIENT USE ONLY) ID ONE (21:20)
[2023-05-24] MEDS: MELATONIN 5 MG TABLETS PO SCH (22:17)
[2023-05-24] MEDS: THIAMINE HCL 100 MG TABLET (FP) PO SCH (22:18)
[2023-05-25 09:46] LABS: HEMATOCRIT 38.2 % (35.4-49); HEMOGLOBIN 12.2 GM/dL (11.7-16.9); MCH 27.5 pg (25.7-33.7); MCHC 31.9 g/dl (32.0-35.9); MEAN CELL VOLUME 86.1 fl (80-96); MEAN PLT VOLUME 7.5 fl (7.5-11.1); PLATELET COUNT 330 10^3/uL (134-434); RBC 4.43 M/mm3 (4.00-5.60); RDW 13.9 % (11.9-15.9); WHITE BLOOD COUNT 4.2 K/mm3 (4.0-10.0)
[2023-05-25 09:52] LABS: URINE APPEARANCE CLEAR; URINE BILIRUBIN NEGATIVE (NEGATIVE); URINE COLOR YELLOW; URINE GLUCOSE (UA) NEGATIVE (NEGATIVE); URINE KETONE TRACE (NEGATIVE); URINE LEUK ESTERASE NEGATIVE (NEGATIVE); URINE NITRITE NEGATIVE (NEGATIVE); URINE PROTEIN NEGATIVE (NEGATIVE); URINE UROBILINOGEN 0.2 mg/dL (0.2-1.0)
[2023-05-25 09:52] LABS: CHLORIDE 110 mmol/L (98-107); POTASSIUM 4.3 mmol/L (3.5-5.1); SODIUM 142 mmol/L (136-145)
[2023-05-25 10:01] LABS: ALBUMIN 2.9 g/dl (3.4-5.0); ANION GAP 3 mmol/L (4-13); BLOOD UREA NITROGEN 10.8 mg/dL (7-18); CALCIUM 8.6 mg/dL (8.5-10.1); CO2 30 mmol/L (21-32); GLUCOSE,RANDOM 113 mg/dL (74-106)
[2023-05-25 10:04] LABS: SGOT/AST 19 U/L (15-37); SGPT/ALT 26 U/L (13-61)
[2023-05-25 10:06] LABS: BILIRUBIN,TOTAL 0.2 mg/dL (0.2-1); TOT PROT 5.9 g/dl (6.4-8.2)
[2023-05-25 10:07] LABS: ALK PHOS 75 U/L (45-117)
[2023-05-25] MEDS: ACETAMINOPHEN 325 MG TABLET (FP) PO PRN (10:30)
[2023-05-25] MEDS: PRENATAL VITAMINS W/ FOLIC ACID TABLET (FP) PO SCH (10:30)
[2023-05-25] MEDS: QUEtiapine FUMARATE 50 MG TABLET PO SCH (21:21)
[2023-05-25] MEDS: MELATONIN 5 MG TABLETS PO SCH (21:21)
[2023-05-25] MEDS: THIAMINE HCL 100 MG TABLET (FP) PO SCH (21:21)
[2023-05-26] MEDS: PRENATAL VITAMINS W/ FOLIC ACID TABLET (FP) PO SCH (10:00)
[2023-05-26] MEDS: ACETAMINOPHEN 325 MG TABLET (FP) PO PRN (10:00)
[2023-05-26] MEDS: FLUoxetine HCL 10 MG CAPSULE PO SCH (10:58)
[2023-05-26] MEDS: QUEtiapine FUMARATE 50 MG TABLET PO SCH (23:05)
[2023-05-26] MEDS: MELATONIN 5 MG TABLETS PO SCH (23:05)
[2023-05-26] MEDS: THIAMINE HCL 100 MG TABLET (FP) PO SCH (23:05)
[2023-05-27] MEDS: PRENATAL VITAMINS W/ FOLIC ACID TABLET (FP) PO SCH (09:56)
[2023-05-27] MEDS: IBUPROFEN 600 MG TABLET (FP) PO PRN (09:58)
[2023-05-27] MEDS: FLUoxetine HCL 10 MG CAPSULE PO SCH (09:58)
[2023-05-27] MEDS: ACETAMINOPHEN 325 MG TABLET (FP) PO PRN (14:03)
[2023-05-27] MEDS ORDERED: CYCLOBENZAPRINE HCL 10 MG TABLET (FP) PO SCH (15:00)
[2023-05-27] MEDS: QUEtiapine FUMARATE 50 MG TABLET PO SCH (21:38)
[2023-05-27] MEDS: LIDOCAINE PATCH REMOVAL MC SCH (21:38)
[2023-05-27] MEDS: THIAMINE HCL 100 MG TABLET (FP) PO SCH (21:38)
[2023-05-27] MEDS: MELATONIN 5 MG TABLETS PO SCH (21:38)
[2023-05-27] MEDS: BACLOFEN 10 MG TABLET (FP) PO SCH (21:39)
[2023-05-28] MEDS: BACLOFEN 10 MG TABLET (FP) PO SCH ×3 (06:15→21:49)
[2023-05-28] MEDS: LIDOCAINE 4% PATCH TP SCH (09:45)
[2023-05-28] MEDS: PRENATAL VITAMINS W/ FOLIC ACID TABLET (FP) PO SCH (09:45)
[2023-05-28] MEDS: FLUoxetine HCL 10 MG CAPSULE PO SCH (09:47)
[2023-05-28] MEDS: ACETAMINOPHEN 325 MG TABLET (FP) PO PRN (21:49)
[2023-05-28] MEDS: MELATONIN 5 MG TABLETS PO SCH (21:49)
[2023-05-28] MEDS: QUEtiapine FUMARATE 50 MG TABLET PO SCH (21:49)
[2023-05-28] MEDS: THIAMINE HCL 100 MG TABLET (FP) PO SCH (21:49)
[2023-05-28] MEDS: LIDOCAINE PATCH REMOVAL MC SCH (23:13)
[2023-05-29] MEDS: BACLOFEN 10 MG TABLET (FP) PO SCH ×3 (06:26→21:31)
[2023-05-29] MEDS: PRENATAL VITAMINS W/ FOLIC ACID TABLET (FP) PO SCH (09:39)
[2023-05-29] MEDS: LIDOCAINE 4% PATCH TP SCH (09:40)
[2023-05-29] MEDS: FLUoxetine HCL 10 MG CAPSULE PO SCH (09:40)
[2023-05-29] MEDS: IBUPROFEN 600 MG TABLET (FP) PO PRN (09:43)
[2023-05-29] MEDS: GABAPENTIN 300 MG CAPSULE PO SCH ×2 (13:37→21:31)
[2023-05-29] MEDS: MELATONIN 5 MG TABLETS PO SCH (21:31)
[2023-05-29] MEDS: QUEtiapine FUMARATE 50 MG TABLET PO SCH (21:31)
[2023-05-29] MEDS: THIAMINE HCL 100 MG TABLET (FP) PO SCH (21:31)
[2023-05-29] MEDS: LIDOCAINE PATCH REMOVAL MC SCH (22:18)
[2023-05-30] MEDS: BACLOFEN 10 MG TABLET (FP) PO SCH ×3 (06:03→21:58)
[2023-05-30] MEDS: GABAPENTIN 300 MG CAPSULE PO SCH ×3 (06:03→21:58)
[2023-05-30] MEDS: LIDOCAINE 4% PATCH TP SCH (09:51)
[2023-05-30] MEDS: PRENATAL VITAMINS W/ FOLIC ACID TABLET (FP) PO SCH (09:51)
[2023-05-30] MEDS: FLUoxetine HCL 10 MG CAPSULE PO SCH (09:52)
[2023-05-30] MEDS: ACETAMINOPHEN 325 MG TABLET (FP) PO PRN (09:53)
[2023-05-30] MEDS: MELATONIN 5 MG TABLETS PO SCH (21:58)
[2023-05-30] MEDS: QUEtiapine FUMARATE 50 MG TABLET PO SCH (21:58)
[2023-05-30] MEDS: THIAMINE HCL 100 MG TABLET (FP) PO SCH (21:58)
[2023-05-30] MEDS: LIDOCAINE PATCH REMOVAL MC SCH (21:59)
[2023-05-31] MEDS: GABAPENTIN 300 MG CAPSULE PO SCH ×3 (06:37→21:23)
[2023-05-31] MEDS: BACLOFEN 10 MG TABLET (FP) PO SCH ×3 (06:37→21:23)
[2023-05-31] MEDS: LIDOCAINE 4% PATCH TP SCH (09:35)
[2023-05-31] MEDS: PRENATAL VITAMINS W/ FOLIC ACID TABLET (FP) PO SCH (09:35)
[2023-05-31] MEDS: FLUoxetine HCL 10 MG CAPSULE PO SCH (09:36)
[2023-05-31] MEDS: IBUPROFEN 600 MG TABLET (FP) PO PRN (09:38)
[2023-05-31] MEDS: THIAMINE HCL 100 MG TABLET (FP) PO SCH (21:23)
[2023-05-31] MEDS: MELATONIN 5 MG TABLETS PO SCH (21:23)
[2023-05-31] MEDS: QUEtiapine FUMARATE 50 MG TABLET PO SCH (21:23)
[2023-05-31] MEDS: LIDOCAINE PATCH REMOVAL MC SCH (21:25)
[2023-06-01] MEDS: GABAPENTIN 300 MG CAPSULE PO SCH ×3 (06:12→21:06)
[2023-06-01] MEDS: BACLOFEN 10 MG TABLET (FP) PO SCH ×3 (06:12→21:07)
[2023-06-01] MEDS: FLUoxetine HCL 10 MG CAPSULE PO SCH (09:39)
[2023-06-01] MEDS: IBUPROFEN 600 MG TABLET (FP) PO PRN (09:41)
[2023-06-01] MEDS: PRENATAL VITAMINS W/ FOLIC ACID TABLET (FP) PO SCH (10:10)
[2023-06-01] MEDS: LIDOCAINE 4% PATCH TP SCH (10:10)
[2023-06-01] MEDS: QUEtiapine FUMARATE 50 MG TABLET PO SCH (21:06)
[2023-06-01] MEDS: THIAMINE HCL 100 MG TABLET (FP) PO SCH (21:07)
[2023-06-01] MEDS: MELATONIN 5 MG TABLETS PO SCH (21:07)
[2023-06-01] MEDS: LIDOCAINE PATCH REMOVAL MC SCH (21:31)
[2023-06-02] MEDS: BACLOFEN 10 MG TABLET (FP) PO SCH ×3 (06:47→21:02)
[2023-06-02] MEDS: GABAPENTIN 300 MG CAPSULE PO SCH ×3 (06:47→21:02)
[2023-06-02] MEDS: LIDOCAINE 4% PATCH TP SCH (09:52)
[2023-06-02] MEDS: FLUoxetine HCL 10 MG CAPSULE PO SCH (09:52)
[2023-06-02] MEDS: IBUPROFEN 600 MG TABLET (FP) PO PRN (09:53)
[2023-06-02] MEDS: PRENATAL VITAMINS W/ FOLIC ACID TABLET (FP) PO SCH (09:55)
[2023-06-02] MEDS: THIAMINE HCL 100 MG TABLET (FP) PO SCH (21:02)
[2023-06-02] MEDS: QUEtiapine FUMARATE 50 MG TABLET PO SCH (21:02)
[2023-06-02] MEDS: MELATONIN 5 MG TABLETS PO SCH (21:03)
[2023-06-02] MEDS: LIDOCAINE PATCH REMOVAL MC SCH (21:26)
[2023-06-03] MEDS: GABAPENTIN 300 MG CAPSULE PO SCH ×3 (06:28→21:39)
[2023-06-03] MEDS: BACLOFEN 10 MG TABLET (FP) PO SCH ×3 (06:28→21:39)
[2023-06-03] MEDS: FLUoxetine HCL 10 MG CAPSULE PO SCH (09:33)
[2023-06-03] MEDS: PRENATAL VITAMINS W/ FOLIC ACID TABLET (FP) PO SCH (09:33)
[2023-06-03] MEDS: IBUPROFEN 600 MG TABLET (FP) PO PRN (09:34)
[2023-06-03] MEDS: LIDOCAINE 4% PATCH TP SCH (09:35)
[2023-06-03] MEDS: LIDOCAINE PATCH REMOVAL MC SCH (21:38)
[2023-06-03] MEDS: THIAMINE HCL 100 MG TABLET (FP) PO SCH (21:39)
[2023-06-03] MEDS: MELATONIN 5 MG TABLETS PO SCH (21:39)
[2023-06-03] MEDS: QUEtiapine FUMARATE 50 MG TABLET PO SCH (21:39)
[2023-06-04] MEDS: BACLOFEN 10 MG TABLET (FP) PO SCH ×3 (06:13→21:50)
[2023-06-04] MEDS: GABAPENTIN 300 MG CAPSULE PO SCH ×3 (06:13→21:50)
[2023-06-04] MEDS: PRENATAL VITAMINS W/ FOLIC ACID TABLET (FP) PO SCH (09:45)
[2023-06-04] MEDS: FLUoxetine HCL 10 MG CAPSULE PO SCH (09:46)
[2023-06-04] MEDS: IBUPROFEN 600 MG TABLET (FP) PO PRN (09:46)
[2023-06-04] MEDS: LIDOCAINE 4% PATCH TP SCH (09:47)
[2023-06-04] MEDS: LIDOCAINE PATCH REMOVAL MC SCH (21:50)
[2023-06-04] MEDS: THIAMINE HCL 100 MG TABLET (FP) PO SCH (21:50)
[2023-06-04] MEDS: QUEtiapine FUMARATE 50 MG TABLET PO SCH (21:50)
[2023-06-04] MEDS: MELATONIN 5 MG TABLETS PO SCH (21:50)
[2023-06-05] MEDS: BACLOFEN 10 MG TABLET (FP) PO SCH ×3 (06:32→21:41)
[2023-06-05] MEDS: GABAPENTIN 300 MG CAPSULE PO SCH ×3 (06:32→21:41)
[2023-06-05] MEDS: IBUPROFEN 600 MG TABLET (FP) PO PRN (09:52)
[2023-06-05] MEDS: PRENATAL VITAMINS W/ FOLIC ACID TABLET (FP) PO SCH (09:52)
[2023-06-05] MEDS: FLUoxetine HCL 10 MG CAPSULE PO SCH (09:54)
[2023-06-05] MEDS: LIDOCAINE 4% PATCH TP SCH (09:54)
[2023-06-05] MEDS: THIAMINE HCL 100 MG TABLET (FP) PO SCH (21:41)
[2023-06-05] MEDS: LIDOCAINE PATCH REMOVAL MC SCH (21:41)
[2023-06-05] MEDS: MELATONIN 5 MG TABLETS PO SCH (21:41)
[2023-06-05] MEDS: QUEtiapine FUMARATE 50 MG TABLET PO SCH (21:41)
[2023-06-06] MEDS: GABAPENTIN 300 MG CAPSULE PO SCH ×3 (06:37→21:27)
[2023-06-06] MEDS: BACLOFEN 10 MG TABLET (FP) PO SCH ×3 (06:37→21:27)
[2023-06-06] MEDS: PRENATAL VITAMINS W/ FOLIC ACID TABLET (FP) PO SCH (09:45)
[2023-06-06] MEDS: FLUoxetine HCL 10 MG CAPSULE PO SCH (09:45)
[2023-06-06] MEDS: LIDOCAINE 4% PATCH TP SCH (09:45)
[2023-06-06] MEDS: IBUPROFEN 600 MG TABLET (FP) PO PRN (09:46)
[2023-06-06] MEDS: QUEtiapine FUMARATE 50 MG TABLET PO SCH (21:27)
[2023-06-06] MEDS: MELATONIN 5 MG TABLETS PO SCH (21:27)
[2023-06-06] MEDS: LIDOCAINE PATCH REMOVAL MC SCH (21:27)
[2023-06-06] MEDS: THIAMINE HCL 100 MG TABLET (FP) PO SCH (21:27)
[2023-06-07] MEDS: BACLOFEN 10 MG TABLET (FP) PO SCH ×3 (06:01→21:05)
[2023-06-07] MEDS: GABAPENTIN 300 MG CAPSULE PO SCH ×3 (06:01→21:05)
[2023-06-07] MEDS: FLUoxetine HCL 10 MG CAPSULE PO SCH (09:34)
[2023-06-07] MEDS: PRENATAL VITAMINS W/ FOLIC ACID TABLET (FP) PO SCH (09:34)
[2023-06-07] MEDS: IBUPROFEN 600 MG TABLET (FP) PO PRN (09:36)
[2023-06-07] MEDS: LIDOCAINE 4% PATCH TP SCH (09:37)
[2023-06-07] MEDS: QUEtiapine FUMARATE 50 MG TABLET PO SCH (21:05)
[2023-06-07] MEDS: MELATONIN 5 MG TABLETS PO SCH (21:05)
[2023-06-07] MEDS: THIAMINE HCL 100 MG TABLET (FP) PO SCH (21:05)
[2023-06-07] MEDS: LIDOCAINE PATCH REMOVAL MC SCH (21:12)
[2023-06-08] MEDS: GABAPENTIN 300 MG CAPSULE PO SCH ×3 (06:02→21:44)
[2023-06-08] MEDS: BACLOFEN 10 MG TABLET (FP) PO SCH ×3 (06:02→21:44)
[2023-06-08] MEDS: PRENATAL VITAMINS W/ FOLIC ACID TABLET (FP) PO SCH (09:39)
[2023-06-08] MEDS: FLUoxetine HCL 10 MG CAPSULE PO SCH (09:39)
[2023-06-08] MEDS: IBUPROFEN 600 MG TABLET (FP) PO PRN (09:40)
[2023-06-08] MEDS: LIDOCAINE 4% PATCH TP SCH (09:41)
[2023-06-08] MEDS: LIDOCAINE PATCH REMOVAL MC SCH (21:43)
[2023-06-08] MEDS: QUEtiapine FUMARATE 50 MG TABLET PO SCH (21:44)
[2023-06-08] MEDS: THIAMINE HCL 100 MG TABLET (FP) PO SCH (21:44)
[2023-06-08] MEDS: MELATONIN 5 MG TABLETS PO SCH (21:45)
[2023-06-09] MEDS: BACLOFEN 10 MG TABLET (FP) PO SCH ×3 (06:03→21:05)
[2023-06-09] MEDS: GABAPENTIN 300 MG CAPSULE PO SCH ×3 (06:03→21:05)
[2023-06-09] MEDS: FLUoxetine HCL 10 MG CAPSULE PO SCH (10:51)
[2023-06-09] MEDS: PRENATAL VITAMINS W/ FOLIC ACID TABLET (FP) PO SCH (10:51)
[2023-06-09] MEDS: LIDOCAINE 4% PATCH TP SCH (10:51)
[2023-06-09 16:47] VITALS: RESP 18
[2023-06-09] MEDS: LIDOCAINE PATCH REMOVAL MC SCH (21:04)
[2023-06-09] MEDS: MELATONIN 5 MG TABLETS PO SCH (21:05)
[2023-06-09] MEDS: QUEtiapine FUMARATE 50 MG TABLET PO SCH (21:05)
[2023-06-09] MEDS: THIAMINE HCL 100 MG TABLET (FP) PO SCH (21:05)
[2023-06-10] MEDS: GABAPENTIN 300 MG CAPSULE PO SCH (06:13)
[2023-06-10] MEDS: BACLOFEN 10 MG TABLET (FP) PO SCH (06:13)
[2023-06-10 06:29] VITALS: TEMP 97
[2023-06-10 09:21] VITALS: BP 146/86; PULSE 75
[2023-06-10] MEDS: PRENATAL VITAMINS W/ FOLIC ACID TABLET (FP) PO SCH (09:40)
[2023-06-10] MEDS: FLUoxetine HCL 10 MG CAPSULE PO SCH (09:41)
[2023-06-10] MEDS: LIDOCAINE 4% PATCH TP SCH (09:42)
== END 2023-06-10 11:20 | disposition home or self-care (01) | DRG 772 ==
LOC: YASAS 12:53 → Y5N 16:46
PROVIDERS: ADMIT Allergy & Immunology; ATTEND Psychiatry & Neurology Pain Medicine
PROC: HZ42ZZZ Group Counseling for Substance Abuse Treatment, Cognitive-Behavioral (ICD-10-PCS; principal; 2023-05-24)
DX: F10.20 Alcohol dependence, uncomplicated (principal); F14.20 Cocaine dependence, uncomplicated; F12.20 Cannabis dependence, uncomplicated; F17.210 Nicotine dependence, cigarettes, uncomplicated; F19.282 Other psychoactive substance dependence with psychoactive substance-induced sleep disorder; F19.24 Other psychoactive substance dependence with psychoactive substance-induced mood disorder; F41.9 Anxiety disorder, unspecified; F32.A Depression, unspecified; E78.2 Mixed hyperlipidemia; I10 Essential (primary) hypertension; G89.28 Other chronic postprocedural pain; M54.2 Cervicalgia; R73.03 Prediabetes; Z86.59 Personal history of other mental and behavioral disorders; Z86.11 Personal history of tuberculosis; Z91.148 Patient's other noncompliance with medication regimen for other reason
CPT/HCPCS: 36415; 72040-TC; 80053; 80307; 81003; 82962; 83036; 85027; 86780; 87635; J0475

== ENCOUNTER 2023-06-09 07:50 | Emergency (ER) | payer OTHER ==
[2023-06-09 08:18] VITALS: BP 160/85; PULSE 85; RESP 19; TEMP 98; BMI 25.8
[2023-06-09] MEDS ORDERED: KETOROLAC TROMETHAMINE 30 MG/1 ML VIAL IVPUSH ONE (08:35)
[2023-06-09] MEDS ORDERED: KETOROLAC TROMETHAMINE 30 MG/1 ML VIAL ONE (09:17)
[2023-06-09 09:43] LABS: URINE APPEARANCE CLEAR; URINE BILIRUBIN NEGATIVE (NEGATIVE); URINE COLOR YELLOW; URINE GLUCOSE (UA) NEGATIVE (NEGATIVE); URINE KETONE NEGATIVE (NEGATIVE); URINE LEUK ESTERASE NEGATIVE (NEGATIVE); URINE NITRITE NEGATIVE (NEGATIVE); URINE PROTEIN NEGATIVE (NEGATIVE); URINE UROBILINOGEN 0.2 mg/dL (0.2-1.0)
[2023-06-09 09:44] LABS: BASO % 0.8 % (0-2.0); EOS % 3.4 % (0-4.5); HEMATOCRIT 42.8 % (35.4-49); HEMOGLOBIN 13.6 GM/dL (11.7-16.9); MCH 26.8 pg (25.7-33.7); MCHC 31.8 g/dl (32.0-35.9); MEAN CELL VOLUME 84.3 fl (80-96); MEAN PLT VOLUME 7.6 fl (7.5-11.1); MONO % 10.4 % (3.8-10.2); NEUT % 57.4 % (42.8-82.8); PLATELET COUNT 292 10^3/uL (134-434); RBC 5.08 M/mm3 (4.00-5.60); RDW 14.7 % (11.9-15.9)
[2023-06-09 10:10] LABS: POTASSIUM 4.2 mmol/L (3.5-5.1)
[2023-06-09 10:13] LABS: ALBUMIN 3.4 g/dl (3.4-5.0); BLOOD UREA NITROGEN 9.7 mg/dL (7-18); MAGNESIUM 2.2 mg/dL (1.8-2.4)
[2023-06-09 10:18] LABS: BILIRUBIN,TOTAL 0.4 mg/dL (0.2-1)
== END 2023-06-09 12:49 | disposition home or self-care (01) ==
LOC: JER 07:50
PROC: 3E0333Z Introduction of Anti-inflammatory into Peripheral Vein, Percutaneous Approach (ICD-10-PCS; principal; 2023-06-09)
DX: M25.561 Pain in right knee (principal); M25.562 Pain in left knee; W19.XXXA Unspecified fall, initial encounter; Y93.01 Activity, walking, marching and hiking; Z20.822 Contact with and (suspected) exposure to COVID-19
CPT/HCPCS: 0241U-QW; 36415; 71046-TC-FY; 72125-TC; 80053; 81003; 83735; 84484; 85025; 87086; 93005; 93010; 99285-25